=== PATIENT | male | born 1955 | race African-American/Black ===

== ENCOUNTER → 2019-10-18 12:51 | Outpatient (CLI) | payer MEDICAID, SELFPAY ==
--- NOTE | 2019-10-18 12:57 | VDUE_ITS ---
Reason For Study: ESRD Right Arm Left Arm Right Cephalic Vein at the wrist measures Left Cephalic Vein at the wrist measures 0.34 0.23 x 0.22 cm. x 0.35 cm. Right Cephalic Vein in the forearm measures Left Cephalic Vein in the forearm measures 0.27 x 0.27 cm. 0.21 x 0.21 cm. Right Cephalic Vein below antecub measures Left Cephalic Vein below antecub measures 0.15 x 0.15 cm. 0.20 x 0.21 cm. Right Cephalic Vein above antecub measures Multiple small branches noted throughout the 0.05 x 0.06 cm. left forearm. Right Cephalic Vein mid bicep measures 0.18 Cephalic vein above antecube is partially x 0.20 cm. compressible with bright intraluminal echoes Right Cephalic Vein at the shoulder measures consistent with chronic DVT. 0.20 x 0.21 cm. Left Cephalic Vein above antecub measures Right Basilic Vein at the origin measures 0.26 x 0.28 cm. 0.53 x 0.56 cm. Left Cephalic Vein at mid bicep measures 0.32 Right Basilic Vein mid bicep measures 0.33 x x 0.33 cm. 0.41 cm. Left Cephalic Vein at the shoulder measures Right Basilic Vein above antecub measures 0.32 x 0.32 cm. 0.34 x 0.32 cm. Left Basilic vein not visualized. Branch at mid basilic measures 0.23 x 0.25 Left Brachial vein measures 0.63 x 0.68 cm cm. with a velocity of 64 cm/sec. Right Brachial artery measures 0.71 x 0.70 Left Radial vein measures 0.35 x 0.38 cm with cm with a velocity of 70.8 cm/sec. a velocity of 57.8 cm/sec. Right Radial artery measures 0.42 x 0.42 cm with a velocity of 50.3 cm/sec. Interpretation Summary Patent and compressible right upper extremity cephalic and basilic veins with dimensions as noted. Chronic superficial thrombophlebitis left cephalic vein above the antecubital space.. Left basilic vein not identified. Normal diameter and flow bilateral radial and brachial arteries. Ordering Physician: Manuelito Nunez Referring Physician: Rodri Pascal Performed By: Mariana Tavares RVT ?
== END ==
PROVIDERS: PCP Internal Medicine Infectious Disease; Referring Provider Student in an Organized Health Care Education/Training Program; Visit Provider Student in an Organized Health Care Education/Training Program
DX: N18.6 End stage renal disease (principal)
CPT/HCPCS: 93970

== ENCOUNTER → 2019-11-15 09:54 | Outpatient (CLI) | payer MEDICAID, SELFPAY ==
[2019-11-15 08:55] VITALS: BMI 29.8
--- NOTE | 2019-11-15 09:55 | ECHOD_ITS ---
Version 2 Reason For Study: s/p CABG Procedure This was a 2D Doppler, Color Flow transthoracic echocardiogram. Unable to use Definity; unable to get IV (attempted 3 times). Exam performed in department. Left Ventricle Normal LV size. Moderate concentric left ventricular hypertrophy. The estimated ejection fraction is 50 %. Stage 2 diastolic dysfunction. There is mild global hypokinesis of the left ventricle. Right Ventricle Normal RV size. Normal systolic function. Atria The left atrium is moderately enlarged. Normal right atrium. Mitral Valve Bileaflet diffuse mitral valve thickening. Moderate (2+) eccentric mitral valve insufficiency. Tricuspid Valve Normal tricuspid valve. Mild to moderate (1-2+) tricuspid valve insufficiency. Pulmonary artery systolic pressure is 45 mmHg. Moderate pulmonary hypertension. Aortic Valve Trisinus/trileaflet aortic valve. Trivial aortic valve insufficiency. Pulmonic Valve Normal pulmonic valve. Great Vessels Calcified aortic root. Mildly dilated aortic root. The pulmonary artery is normal size. Normal inferior vena cava. Pericardium/Pleural No pericardial effusion. MMode/2D Measurements & Calculations LVIDd: 4.5 cm IVSd: 1.8 cm Ao root diam: 4.0 cm LVIDs: 3.4 cm LVPWd: 1.3 cm RVDd: 4.1 cm FS: 25.2 % LAV(MOD-bp): 92.4 ml LA A4 area: 27.6 cm2 LA dimension(2D): 4.0 cm LAV(MOD-bp) Indexed: 41.6 ml/m2 LAV(MOD-sp2): 81.7 ml LAV(MOD-sp4): 95.8 ml RA A4 area: 16.6 cm2 Doppler Measurements & Calculations MV E max antelmo: 85.4 cm/sec Lat Peak E' Antelmo: 10.3 cm/sec Med Peak E' Antelmo: 3.4 cm/sec MV A max antelmo: 92.5 cm/sec E/E' lat: 8.3 E/E' med: 25.4 MV E/A: 0.92 Ao V2 max: 104.8 cm/sec LV V1 max: 68.8 cm/sec PA V2 max: 68.6 cm/sec Ao max P.4 mmHg LV V1 max P.9 mmHg Ao V2 mean: 78.9 cm/sec Ao mean P.7 mmHg Ao V2 VTI: 22.2 cm TR max antelmo: 318.4 cm/sec TR max P.5 mmHg Interpretation Summary Normal LV size. The estimated ejection fraction is 50 %. There is mild global hypokinesis of the left ventricle. Moderate (2+) eccentric mitral valve insufficiency. Pulmonary artery systolic pressure is 45 mmHg. Moderate pulmonary hypertension. Moderate concentric left ventricular hypertrophy. Stage 2 diastolic dysfunction. Ordering Physician: John Valenzuela Referring Physician: Rodri Pascal Performed By: Yessica Moreno, GUMARO, RVT
== END ==
PROVIDERS: PCP Internal Medicine Infectious Disease; Referring Provider Internal Medicine Cardiovascular Disease; Visit Provider Internal Medicine Cardiovascular Disease
DX: I42.8 Other cardiomyopathies (principal); Z95.1 Presence of aortocoronary bypass graft
CPT/HCPCS: 93306; Q9957; A4216

== ENCOUNTER 2019-12-06 08:49 | Day surgery (SDC) | payer MEDICAID, SELFPAY ==
[2019-11-15 09:44] VITALS: BMI 29.8
[2019-12-06] VITALS (14 sets, daily range): BP systolic 127–146; BP diastolic 81–111; PULSE 71–93; RESP 16; TEMP 36.3–37.4; O2SAT 88–98; BMI 30.2
[2019-12-06 10:41] LABS: Bedside Glucose 305 mg/dL (70-110)
--- NOTE | 2019-12-06 10:41 | HP.PCM_ITS ---
Problem List (1) End-stage renal disease on hemodialysis Status: Chronic History and Physical Date of Admission: 12/06/19 Intake Visit Reasons: PERMANENT ACCESS/ VM 10/17 Allergies NSAIDS (Non-Steroidal Anti-Inflamma Allergy (Unknown, Verified 10/30/19 14:34) Unknown JONNY Inhibitors Allergy (Verified 10/30/19 14:34) Unknown Medications acetaminophen 500 mg tablet 500 mg PO Q6H PRN 10/30/19 [History Confirmed 10/30/19] amlodipine 10 mg tablet 10 mg PO DAILY 10/30/19 [History Confirmed 10/30/19] atorvastatin 40 mg tablet 40 mg PO QHS 10/30/19 [History Confirmed 10/30/19] carbamazepine 100 mg capsule,extended release [id number] 100 mg PO TID cap 10/30/19 [History Confirmed 10/30/19] carbamazepine 200 mg tablet 200 mg PO BID 10/30/19 [History Confirmed 10/30/19] carvedilol 25 mg tablet 25 mg PO BID 10/30/19 [History Confirmed 10/30/19] finasteride 5 mg tablet 5 mg PO DAILY 10/30/19 [History Confirmed 10/30/19] furosemide 40 mg tablet 40 mg PO DAILY 10/30/19 [History Confirmed 10/30/19] gabapentin 300 mg capsule 300 mg PO BID 10/30/19 [History Confirmed 10/30/19] hydralazine 10 mg tablet 10 mg PO TID 10/30/19 [History Confirmed 10/30/19] insulin aspart U-100 100 unit/mL subcutaneous cartridge 1 sliding scale dose SC USEASDIRECTD 10/30/19 [History Confirmed 10/30/19] isosorbide mononitrate 30 mg tablet,extended release 24 hr 90 mg PO DAILY tab 10/30/19 [History Confirmed 10/30/19] nitroglycerin 0.4 mg sublingual tablet 0.4 mg SUBLINGUAL Q5M PRN 10/30/19 [History Confirmed 10/30/19] ondansetron HCl 4 mg tablet 4 mg PO Q6H 10/30/19 [History Confirmed 10/30/19] pantoprazole 40 mg tablet,delayed release 40 mg PO DAILY 10/30/19 [History Confirmed 10/30/19] sennosides 8.6 mg-docusate sodium 50 mg capsule 2 tab-cap PO QHS cap 10/30/19 [History Confirmed 10/30/19] terazosin 5 mg capsule 5 mg PO DAILY 10/30/19 [History Confirmed 10/30/19] [facility] Medical History (Updated 10/30/19 @ 14:29 by Terrie Arellano) Chronic obstructive pulmonary disease, unspecified (Chronic) Type 2 diabetes mellitus with other diabetic kidney complication (Acute) Muscle weakness (generalized) (Acute) Hyperlipidemia, unspecified (Acute) Unspecified systolic (congestive) heart failure (Acute) Coronary artery aneurysm (Acute) Type 2 diabetes mellitus with diabetic neuropathy, unspecified (Acute) Pneumonia, unspecified organism (Acute) Chronic kidney disease, stage 5 (Chronic) Atherosclerosis of other coronary artery bypass graft(s) with unspecified angina pectoris (Acute) Emphysema, unspecified (Acute) Morbid (severe) obesity due to excess calories (Acute) Other cervical disc degeneration, unspecified cervical region (Acute) Major depressive disorder, recurrent, moderate (Acute) Syncope and collapse (Acute) Benign prostatic hyperplasia without lower urinary tract symptoms (Acute) Old myocardial infarction (Acute) Neuralgia and neuritis, unspecified (Acute) GERD (gastroesophageal reflux disease) (Acute) Hypertension (Chronic) Unspecified cataract (Acute) Paraphilia, unspecified (Acute) Surgical History (Updated 10/30/19 @ 14:29 by Terrie Arellano) Hx of appendectomy (Acute) Hx of three vessel coronary artery bypass (Acute) Hx of heart artery stent (Acute) Family History (Updated 10/30/19 @ 14:30 by Terrie Arellano) Mother Diabetes HPI HPI HPI: PRASHANTH INGRAM, is a 64 M who presents to the office today for surgical consultation regarding hemodialysis access in the form of an AV fistula. Patient is referred by his plate sensitizer and a written copy of my surgical consult recommendations will return to him. Patient is a 64-year-old -[place] gentleman. He states that he was hospitalized at [facility] for at least a week with what sounds like acute on chronic renal failure. He had right internal jugular tunneled dialysis catheters placed. He of course had multiple peripheral lines. Is been on hemodialysis for at least a month He is right arm dominant. States that 2 years ago he was sent to [place] had coronary bypass surgery. He states that he was told at that time that his heart was so bad that he should basically remain in a wheelchair. He has done minimal walking since that time. He has not been back to see his medical claims examiner in that time. As noted below on October 17 at the [facility] he had vein mapping. Unfortunately that shows thrombophlebitis of his left cephalic vein. The left basilic vein is not identified. The right upper extremity cephalic vein is marginal. The right upper extremity basilic vein is adequate. [facility] [address] [place] [address] Saphenous Vein Mapping, Bilat 10/18/19 1301 MR#: [id number]:[id number] Name:Betsy INGRAM #:[id number] : 1955 64From:Mauricio Fox MD Attending Dr: Dr. Manuelito Nunez MDStatus: REG CLI Ordering Dr: Manuelito Nunez MDDate: 10/18/19 Location:CVSSex:MAA Admitted: Reason For Study: ESRD Right Arm Left Arm Right Cephalic Vein at the wrist measures Left Cephalic Vein at the wrist measures 0.34 0.23 x 0.22 cm. x 0.35 cm. Right Cephalic Vein in the forearm measures Left Cephalic Vein in the forearm measures 0.27 x 0.27 cm. 0.21 x 0.21 cm. Right Cephalic Vein below antecub measures Left Cephalic Vein below antecub measures 0.15 x 0.15 cm. 0.20 x 0.21 cm. Right Cephalic Vein above antecub measures Multiple small branches noted throughout the 0.05 x 0.06 cm. left forearm. Right Cephalic Vein mid bicep measures 0.18 Cephalic vein above antecube is partially x 0.20 cm. compressible with bright intraluminal echoes Right Cephalic Vein at the shoulder measures consistent with chronic DVT. 0.20 x 0.21 cm. Left Cephalic Vein above antecub measures Right Basilic Vein at the origin measures 0.26 x 0.28 cm. 0.53 x 0.56 cm. Left Cephalic Vein at mid bicep measures 0.32 Right Basilic Vein mid bicep measures 0.33 x x 0.33 cm. 0.41 cm. Left Cephalic Vein at the shoulder measures Right Basilic Vein above antecub measures 0.32 x 0.32 cm. 0.34 x 0.32 cm. Left Basilic vein not visualized. Branch at mid basilic measures 0.23 x 0.25 Left Brachial vein rahul sures 0.63 x 0.68 cm cm. with a velocity of 64 cm/sec. Right Brachial artery measures 0.71 x 0.70 Left Radial vein measures 0.35 x 0.38 cm with cm with a velocity of 70.8 cm/sec. a velocity of 57.8 cm/sec. Right Radial artery measures 0.42 x 0.42 cm with a velocity of 50.3 cm/sec. Interpretation Summary Patent and compressible right upper extremity cephalic and basilic veins with dimensions as noted. Chronic superficial thrombophlebitis left cephalic vein above the antecubital space.. Left basilic vein not identified. Normal diameter and flow bilateral radial and brachial arteries. Ordering Physician: Manuelito Nunez Referring Physician: Rodri Pascal Performed By: Mariana Tavares RVT ? 10/18/19 5799 Date Mauricio Fox MD HPI HPI HPI: PRASHANTH INGRAM, is a 64 M who presents to the office today for Exam Const General: comfortable, no acute distress Nutritional Appearance: obese Orientation: alert, awake HENMT Head: normal to inspection Chest Other: Increased anterior posterior diameter Resp Auscultation: clear to auscultation bilaterally Percussion: percussion normal Cardio Rate: regular rate Rhythm: regular rhythm GI Palpation: soft Other: Overweight, nontender Skin Other: Skin of bilateral upper extremities is intact Neuro Cognition: normal cognition Extrem Other: Right upper extremity radial and brachial arteries are 3+. I cannot detect visually any superficial veins. Psych Other: Patient demonstrated some frustration and my description of the fistula and need for staged approach Assessment & Plan Problems 1. Chronic kidney disease, stage 5 N18.5 Plan Although the patient is right arm dominant he has superficial thrombophlebitis involving the left upper extremity cephalic vein and he has a nonvisualized left extremity basilic vein. I propose for him stage I right extremity brachiobasilic AV fistula creation and he is well aware that a future transposition will be required. He is aware that there are absolutely no guarantees of success. He is aware that intermittent procedures to help maintain the fistula may indeed be required. He has not seen cardiology for 2 years. He describes what sounds like a very poorly functioning heart. He states that he went through having the tunnel dialysis catheters though without consequence. I am recommending to him that we get updated cardiology review. He is requesting not to return to [facility] and so we will make a referral locally here in [place]. I then propose for him stage I right extremity brachiobasilic AV fistula creation under monitored anesthesia care. We will schedule and proceed at his discretion. I very much appreciate the kind opportunity of assisting with her surgical care. Cc: Dr. Manuelito Nunez and Dr Rodri Fox M.D., F.A.C.S. Orders Referrals: Cardiology I25.799, I50.20, Z95.1, Z95.5 Coding Level of Care Code 25020 Diagnoses Chronic kidney disease, stage 5 N18.5 I have re-examined the patient. There are no clinical changes since date of exam. Patient has been seen by Dr. Lopez Nicolas cardiology. Repeat stress testing was not felt to be required. Patient presents now for stage I right upper extremity basilic vein to brachial artery AV fistula creation. He has had an additional opportunity to ask and have questions answered. His blood sugars continue to run high secondary to noncompliance. Mauricio Fox M.D., F.A.C.S. Procedure Criteria Procedure Type: Elective COVID Risk Discussion: The surgeon/proceduralist and patient have discussed in detail the risk of exposure to and/or potential harm posed by the COVID-19 virus with having a surgery/procedure at this time versus the risk of delaying the surgery/procedure. It is not possible to know either the risk of delaying the surgery or procedure or chance of getting an infection with perfect accuracy, but a joint decision was made between the patient and the surgeon/proceduralist to proceed at this time with the scheduled surgery/procedure as indicated on the consent form.
--- NOTE | 2019-12-06 11:00 | DCINST_ITS ---
Discharge Diet: Renal Diet Discharge Activity: May Not Drive - for 2-3 days or while taking narcotic pain medications., May Not Shower, May Take a Tub Bath - in 5 days. Lifting Restrictions: 5 pounds Keep extremity elevated above heart level: - - Keep arm elevated above the heart level for 3 days. Additional Activity Instructions:: Exercise hand vigorously with a stress ball. Call your doctor if your incision/area has: Continuous Slow Oozing, Sudden Increased Bleeding - apply pressure and call your doctor., Increased Pain/ Swelling, Increased Redness, Foul Smelling Discharge Call your doctor if you observe: Fever of 101 or Higher Suture Line Care: Avoid Pulling/Pushing, Avoid Pinching/Bending Cleanse incision/area with: Keep Dressing Clean & Dry Additional Dressing/Incision Instructions:: Change or remove dressing in one day. May protect with a gauze bandaid. Allergies/Adverse Reactions: Allergies NSAIDS (Non-Steroidal Anti-Inflamma Allergy (Unknown, Verified 12/06/19 09:12) Unknown JONNY Inhibitors Allergy (Verified 12/06/19 09:12) Unknown MANTOUX Allergy (Uncoded 12/06/19 09:12) PT UNSURE OF REACTION Medications to take at Discharge acetaminophen 500 mg tablet 500 mg PO Q6H PRN 10/30/19 amlodipine 10 mg tablet 10 mg PO DAILY 10/30/19 atorvastatin 40 mg tablet 40 mg PO QHS 10/30/19 carbamazepine 200 mg tablet 200 mg PO BID 10/30/19 carvedilol 25 mg tablet 25 mg PO BID 10/30/19 furosemide 40 mg tablet 40 mg PO DAILY 10/30/19 gabapentin 300 mg capsule 300 mg PO BID 10/30/19 hydralazine 10 mg tablet 10 mg PO TID 10/30/19 isosorbide mononitrate 30 mg tablet,extended release 24 hr 90 mg PO DAILY tab 10/30/19 nitroglycerin 0.4 mg sublingual tablet 0.4 mg SUBLINGUAL Q5M PRN 10/30/19 ondansetron HCl 4 mg tablet 4 mg PO Q6H 10/30/19 pantoprazole 40 mg tablet,delayed release 40 mg PO DAILY 10/30/19 sennosides 8.6 mg-docusate sodium 50 mg capsule 2 tab-cap PO QHS cap 10/30/19 terazosin 5 mg capsule 5 mg PO DAILY 10/30/19 Insulin Detemir [Levemir] 18 - 20 unit SQ BID 11/26/19 Primary Care Physician: Rodri Pascal MD [Primary Care Provider] - Test Results: Test results from this visit will be discussed in further detail at your follow- up appointment, if applicable. Please Follow Up With: Mauricio Fox MD - [phone] When: Call to make an appointment for suture removal and follow up in 1 week.
[2019-12-06] MEDS: Insulin Lispro 100 UNIT/ML INSULN.PEN 6 UNIT SC (11:06)
[2019-12-06] MEDS: Heparin Injection (Vial) 5,000 UNIT/ML VIAL 5000 UNIT (12:00)
[2019-12-06] MEDS: Bupivacaine Mpf 0.5% 30 ML VIAL (12:00)
--- NOTE | 2019-12-06 12:11 | PCM.OPRPT ---
Problem List (1) End-stage renal disease on hemodialysis Status: Chronic Report of Operation Date of Procedure: 12/06/19 Pre-Operative Diagnosis: Stage V chronic renal failure Post-Operative Diagnosis: Same Surgery/Procedure Performed:: Stage I right upper extremity basilic vein to brachial artery arteriovenous hemodialysis fistula creation Description of Surgical Findings:: Timeout and informed consent was obtained. 64-year-old gentleman was taken to the operating placed supine on the table underwent monitored anesthesia care. The right upper extremity was sterilely prepped and draped. 1% lidocaine mixed 50-50 with 0.5% Marcaine was used as a local anesthetic. Total of 9 cc was used. Ultrasound was used to map the course of the right upper arm basilic vein. A curvilinear incision was made in the distal right upper arm close to the antecubital space. Sharp dissection carried down through the subcutaneous tissue. The basilic vein was identified and dissected free distally to a branch point. Sharp and blunt dissection was used to identify the brachial artery and circumferential control was obtained. The patient received 10,000 units of heparin IV based upon weight. The vein was ligated distally with 2 hemoclips. This was at a branch point which was spatulated. The vein was irrigated. Peripheral vascular clamps were placed on the brachial artery. A 11 blade was used to make an arteriotomy which was extended with Brush scissors. A end-to-side vein to arterial anastomosis was created with a running 7-0 Prolene. Prior to completion there appeared to be good antegrade flow. The anastomosis was completed. There is a good 2-3+ palpable right radial pulse. There was pulsatile flow within the fistula. Doppler was used to confirm. The patient received 20 mg of protamine IV. The wound was closed with deep layer of interrupted 3-0 Vicryl. The skin edges approximated running septic or 4-0 Monocryl. Steri-Strips Telfa OpSite dressing applied. Sponge and instrument and needle counts were reported to the surgeon to be correct. Blood loss minimal. Specimens none. Drains none. Blood loss minimal. Mauricio Fox M.D., F.A.C.S. Type of Anesthesia:: Local MAC Anesthesiologist: Martin Josue
[2019-12-06 12:46] LABS: Bedside Glucose 269 mg/dL (70-110)
== END 2019-12-06 15:39 | disposition home or self-care (01) ==
LOC: SDC 08:50 → AC 08:51
PROVIDERS: PCP Internal Medicine Infectious Disease; Referring Provider Surgery; Visit Provider Surgery
PROC: (CPT 36821; principal; 2019-12-06 10:45)
DX: E11.22 Type 2 diabetes mellitus with diabetic chronic kidney disease (principal); I13.2 Hypertensive heart and chronic kidney disease with heart failure and with stage 5 chronic kidney disease, or end stage renal disease; N18.6 End stage renal disease; I50.20 Unspecified systolic (congestive) heart failure; Z99.2 Dependence on renal dialysis; Z91.19 Patient's noncompliance with other medical treatment and regimen; J44.9 Chronic obstructive pulmonary disease, unspecified; E78.5 Hyperlipidemia, unspecified; I25.799 Atherosclerosis of other coronary artery bypass graft(s) with unspecified angina pectoris; E66.01 Morbid (severe) obesity due to excess calories; F32.9 Major depressive disorder, single episode, unspecified; F41.9 Anxiety disorder, unspecified; N40.0 Benign prostatic hyperplasia without lower urinary tract symptoms; I25.2 Old myocardial infarction; K21.9 Gastro-esophageal reflux disease without esophagitis; E11.40 Type 2 diabetes mellitus with diabetic neuropathy, unspecified; I27.20 Pulmonary hypertension, unspecified; Z87.01 Personal history of pneumonia (recurrent); Z95.1 Presence of aortocoronary bypass graft; Z79.4 Long term (current) use of insulin; Z79.84 Long term (current) use of oral hypoglycemic drugs; Z79.899 Other long term (current) drug therapy; F17.200 Nicotine dependence, unspecified, uncomplicated
CPT/HCPCS: 01844; 36821; 82962; J7040; J2405

== ENCOUNTER 2020-01-15 05:54 | Day surgery (SDC) | payer MEDICAID, SELFPAY ==
[2019-12-14 06:29] VITALS: BMI 30.2
[2020-01-15] VITALS (7 sets, daily range): BP systolic 109–138; BP diastolic 49–78; PULSE 59–73; RESP 16–18; TEMP 36.2–36.9; O2SAT 92–98; BMI 30.6
--- NOTE | 2020-01-15 06:11 | HP.PCM_ITS ---
Problem List (1) End-stage renal disease on hemodialysis Status: Chronic History and Physical Date of Admission: 01/15/20 Vital Signs 12/14/19 BMI 30.2 Intake Visit Reasons: 1WK F/U Fistula Creation 12/05 needs S/R Allergies NSAIDS (Non-Steroidal Anti-Inflamma Allergy (Unknown, Verified 12/14/19 07:30) Unknown JONNY Inhibitors Allergy (Verified 12/14/19 07:30) Unknown MANTOUX Allergy (Uncoded 12/06/19 09:12) PT UNSURE OF REACTION Medications acetaminophen 500 mg tablet 500 mg PO Q6H PRN 10/30/19 [History Confirmed 12/14/19] amlodipine 10 mg tablet 10 mg PO DAILY 10/30/19 [History Confirmed 12/14/19] atorvastatin 40 mg tablet 40 mg PO QHS 10/30/19 [History Confirmed 12/14/19] carbamazepine 200 mg tablet 200 mg PO BID 10/30/19 [History Confirmed 12/14/19] carvedilol 25 mg tablet 25 mg PO BID 10/30/19 [History Confirmed 12/14/19] furosemide 40 mg tablet 40 mg PO DAILY 10/30/19 [History Confirmed 12/14/19] gabapentin 300 mg capsule 300 mg PO BID 10/30/19 [History Confirmed 12/14/19] hydralazine 10 mg tablet 10 mg PO TID 10/30/19 [History Confirmed 12/14/19] isosorbide mononitrate 30 mg tablet,extended release 24 hr 90 mg PO DAILY tab 10/30/19 [History Confirmed 12/14/19] nitroglycerin 0.4 mg sublingual tablet 0.4 mg SUBLINGUAL Q5M PRN 10/30/19 [History Confirmed 12/14/19] ondansetron HCl 4 mg tablet 4 mg PO Q6H 10/30/19 [History Confirmed 12/14/19] pantoprazole 40 mg tablet,delayed release 40 mg PO DAILY 10/30/19 [History Confirmed 12/14/19] sennosides 8.6 mg-docusate sodium 50 mg capsule 2 tab-cap PO QHS cap 10/30/19 [History Confirmed 12/14/19] terazosin 5 mg capsule 5 mg PO DAILY 10/30/19 [History Confirmed 12/14/19] Insulin Detemir [Levemir] 18 - 20 unit SQ BID 11/26/19 [History Confirmed 12/14/19] PFSH Family History Mother Diabetes Social History (Updated 12/14/19 @ 07:[address] Mauricio Fox MD) Smoking Status: Light Smoker (<10/day) second hand exposure: Yes alcohol intake: never substance use type: does not use caffeine: No what type of physical activity do you participate in: none seatbelt use: always HPI HPI HPI: PRASHANTH INGRAM, is a 64 M who presents to the office today for postoperative surgical evaluation status post stage I right upper extremity brachiobasilic AV fistula creation as noted below. He has no specific complaints at this time other than some mild soreness at the incision site. Report of Operation Date of Procedure: 12/06/19 Pre-Operative Diagnosis: Stage V chronic renal failure Post-Operative Diagnosis: Same Surgery/Procedure Performed:: Stage I right upper extremity basilic vein to brachial artery arteriovenous hemodialysis fistula creation Problem List (1) End-stage renal disease on hemodialysis Status: Chronic History and Physical Date of Admission: 12/06/19 Intake Visit Reasons: PERMANENT ACCESS/ VM 10/17 Allergies NSAIDS (Non-Steroidal Anti-Inflamma Allergy (Unknown, Verified 10/30/19 14:34) Unknown JONNY Inhibitors Allergy (Verified 10/30/19 14:34) Unknown Medications acetaminophen 500 mg tablet 500 mg PO Q6H PRN 10/30/19 [History Confirmed 10/30/19] amlodipine 10 mg tablet 10 mg PO DAILY 10/30/19 [History Confirmed 10/30/19] atorvastatin 40 mg tablet 40 mg PO QHS 10/30/19 [History Confirmed 10/30/19] carbamazepine 100 mg capsule,extended release [id number] 100 mg PO TID cap 10/30/19 [History Confirmed 10/30/19] carbamazepine 200 mg tablet 200 mg PO BID 10/30/19 [History Confirmed 10/30/19] carvedilol 25 mg tablet 25 mg PO BID 10/30/19 [History Confirmed 10/30/19] finasteride 5 mg tablet 5 mg PO DAILY 10/30/19 [History Confirmed 10/30/19] furosemide 40 mg tablet 40 mg PO DAILY 10/30/19 [History Confirmed 10/30/19] gabapentin 300 mg capsule 300 mg PO BID 10/30/19 [History Confirmed 10/30/19] hydralazine 10 mg tablet 10 mg PO TID 10/30/19 [History Confirmed 10/30/19] insulin aspart U-100 100 unit/mL subcutaneous cartridge 1 sliding scale dose SC USEASDIRECTD 10/30/19 [History Confirmed 10/30/19] isosorbide mononitrate 30 mg tablet,extended release 24 hr 90 mg PO DAILY tab 10/30/19 [History Confirmed 10/30/19] nitroglycerin 0.4 mg sublingual tablet 0.4 mg SUBLINGUAL Q5M PRN 10/30/19 [History Confirmed 10/30/19] ondansetron HCl 4 mg tablet 4 mg PO Q6H 10/30/19 [History Confirmed 10/30/19] pantoprazole 40 mg tablet,delayed release 40 mg PO DAILY 10/30/19 [History Confirmed 10/30/19] sennosides 8.6 mg-docusate sodium 50 mg capsule 2 tab-cap PO QHS cap 10/30/19 [History Confirmed 10/30/19] terazosin 5 mg capsule 5 mg PO DAILY 10/30/19 [History Confirmed 10/30/19] PFSH Medical History (Updated 10/30/19 @ 14:29 by Terrie Arellano) Chronic obstructive pulmonary disease, unspecified (Chronic) Type 2 diabetes mellitus with other diabetic kidney complication (Acute) Muscle weakness (generalized) (Acute) Hyperlipidemia, unspecified (Acute) Unspecified systolic (congestive) heart failure (Acute) Coronary artery aneurysm (Acute) Type 2 diabetes mellitus with diabetic neuropathy, unspecified (Acute) Pneumonia, unspecified organism (Acute) Chronic kidney disease, stage 5 (Chronic) Atherosclerosis of other coronary artery bypass graft(s) with unspecified angina pectoris (Acute) Emphysema, unspecified (Acute) Morbid (severe) obesity due to excess calories (Acute) Other cervical disc degeneration, unspecified cervical region (Acute) Major depressive disorder, recurrent, moderate (Acute) Syncope and collapse (Acute) Benign prostatic hyperplasia without lower urinary tract symptoms (Acute) Old myocardial infarction (Acute) Neuralgia and neuritis, unspecified (Acute) GERD (gastroesophageal reflux disease) (Acute) Hypertension (Chronic) Unspecified cataract (Acute) Paraphilia, unspecified (Acute) Surgical History (Updated 10/30/19 @ 14:29 by Terrie Arellano) Hx of appendectomy (Acute) Hx of three vessel coronary artery bypass (Acute) Hx of heart artery stent (Acute) Family History (Updated 10/30/19 @ 14:30 by Terrie Arellano) Mother Diabetes HPI HPI HPI: PRASHANTH INGRAM, is a 64 M who presents to the office today for surgical consultation regarding hemodialysis access in the form of an AV fistula. Patient is referred by his research laboratory manager and a written copy of my surgical consult recommendations will return to him. Patient is a 64-year-old -[place] gentleman. He states that he was hospitalized at [facility] for at least a week with what sounds like acute on chronic renal failure. He had right internal jugular tunneled dialysis catheters placed. He of course had multiple peripheral lines. Is been on hemodialysis for at least a month He is right arm dominant. States that 2 years ago he was sent to [facility] had coronary bypass surgery. He states that he was told at that time that his heart was so bad that he should basically remain in a wheelchair. He has done minimal walking since that time. He has not been back to see his elementary special education teacher in that time. As noted below on October 17 at the [facility] he had vein mapping. Unfortunately that shows thrombophlebitis of his left cephalic vein. The left basilic vein is not identified. The right upper extremity cephalic vein is marginal. The right upper extremity basilic vein is adequate. [facility] [address] [place] [address] Saphenous Vein Mapping, Bilat 10/18/19 1301 MR#: [id number] Name:PRASHANTH INGRAMRep #:[id number] : 1955 64From:Mauricio Fox MD Attending Dr: Dr. Manuelito Nunez, MDStatus: REG CLI Ordering Dr: Manuelito Nunez MDDate: 10/18/19 Location:CVSSex:MAA Admitted: Reason For Study: ESRD Right Arm Left Arm Right Cephalic Vein at the wrist measures Left Cephalic Vein at the wrist measures 0.34 0.23 x 0.22 cm. x 0.35 cm. Right Cephalic Vein in the forearm measures Left Cephalic Vein in the forearm measures 0.27 x 0.27 cm. 0.21 x 0.21 cm. Right Cephalic Vein below antecub measures Left Cephalic Vein below antecub measures 0.15 x 0.15 cm. 0.20 x 0.21 cm. Right Cephalic Vein above antecub measures Multiple small branches noted throughout the 0.05 x 0.06 cm. left forearm. Right Cephalic Vein mid bicep measures 0.18 Cephalic vein above antecube is partially x 0.20 cm. compressible with bright intraluminal echoes Right Cephalic Vein at the shoulder measures consistent with chronic DVT. 0.20 x 0.21 cm. Left Cephalic Vein above antecub measures Right Basilic Vein at the origin measures 0.26 x 0.28 cm. 0.53 x 0.56 cm. Left Cephalic Vein at mid bicep measures 0.32 Right Basilic Vein mid bicep measures 0.33 x x 0.33 cm. 0.41 cm. Left Cephalic Vein at the shoulder measures Right Basilic Vein above antecub measures 0.32 x 0.32 cm. 0.34 x 0.32 cm. Left Basilic vein not visualized. Branch at mid basilic measures 0.23 x 0.25 Left Brachial vein measures 0.63 x 0.68 cm cm. with a velocity of 64 cm/sec. Right Brachial artery measures 0.71 x 0.70 Left Radial vein measures 0.35 x 0.38 cm with cm with a velocity of 70.8 cm/sec. a velocity of 57.8 cm/sec. Right Radial artery measures 0.42 x 0.42 cm with a velocity of 50.3 cm/sec. Interpretation Summary Patent and compressible right upper extremity cephalic and basilic veins with dimensions as noted. Chronic superficial thrombophlebitis left cephalic vein above the antecubital space.. Left basilic vein not identified. Normal diameter and flow bilateral radial and brachial arteries. Ordering Physician: Manuelito Nunez Referring Physician: Rodri Pascal Performed By: Mariana Tavares RVT ? 10/18/19 1458 Date Mauricio Fox MD HPI HPI HPI: PRASHANTH INGRAM, is a 64 M who presents to the office today for Exam Const General: comfortable, no acute distress Nutritional Appearance: obese Orientation: alert, awake HENMT Head: normal to inspection Chest Other: Increased anterior posterior diameter Resp Auscultation: clear to auscultation bilaterally Percussion: percussion normal Cardio Rate: regular rate Rhythm: regular rhythm GI Palpation: soft Other: Overweight, nontender Skin Other: Skin of bilateral upper extremities is intact Neuro Cognition: normal cognition Extrem Other: Right upper extremity radial and brachial arteries are 3+. I cannot detect visually any superficial veins. Psych Other: Patient demonstrated some frustration and my description of the fistula and need for staged approach Assessment & Plan Problems 1. Chronic kidney disease, stage 5 N18.5 Plan Although the patient is right arm dominant he has superficial thrombophlebitis involving the left upper extremity cephalic vein and he has a nonvisualized left extremity basilic vein. I propose for him stage I right extremity br achiobasilic AV fistula creation and he is well aware that a future transposition will be required. He is aware that there are absolutely no guarantees of success. He is aware that intermittent procedures to help maintain the fistula may indeed be required. He has not seen cardiology for 2 years. He describes what sounds like a very poorly functioning heart. He states that he went through having the tunnel dialysis catheters though without consequence. I am recommending to him that we get updated cardiology review. He is requesting not to return to [facility] and so we will make a referral locally here in [place]. I then propose for him stage I right extremity brachiobasilic AV fistula creation under monitored anesthesia care. We will schedule and proceed at his discretion. I very much appreciate the kind opportunity of assisting with her surgical care. Cc: Dr. Manuelito Nunez and Dr Rodri Fox M.D., F.A.C.S. Orders Referrals: Cardiology I25.799, I50.20, Z95.1, Z95.5 Coding Level of Care Code 49671 Diagnoses Chronic kidney disease, stage 5 N18.5 HPI HPI HPI: PRASHANTH INGRAM, is a 64 M who presents to the office today for Exam Extrem Other: Right upper extremity antecubital incision is clean dry healing very well. There is a thrill and bruit notable. Assessment & Plan Problems 1. End-stage renal disease on hemodialysis N18.6; Z99.2 Plan I am pleased with the patient's current progress. There appears to be a reasonable thrill and bruit subsequent to stage I right extremity brachiobasilic AV fistula creation. I will schedule him for stage II transposition. He is aware of the benefit, risk, complications, alternatives. As noted above the patient does not have otherwise good vein access readily available. I am hopeful that I will be able to achieve a functioning fistula for him. We will allow the current fistula matured a little longer prior to his transposition. Copy: Dr. Nunez and Dr Gwyn Fox M.D., F.A.C.S. Plan stage II right upper extremity transposed basilic vein to brachial artery AV fistula creation. I have re-examined the patient. There are no clinical changes since date of exam. Procedure Criteria Procedure Type: Elective COVID Risk Discussion: The surgeon/proceduralist and patient have discussed in detail the risk of exposure to and/or potential harm posed by the COVID-19 virus with having a surgery/procedure at this time versus the risk of delaying the surgery/procedure. It is not possible to know either the risk of delaying the surgery or procedure or chance of getting an infection with perfect accuracy, but a joint decision was made between the patient and the surgeon/proceduralist to proceed at this time with the scheduled surgery/procedure as indicated on the consent form.
[2020-01-15] MEDS: Lactated Ringers 1,000 ML 100 ML IV (07:00)
--- NOTE | 2020-01-15 07:00 | DCINST_ITS ---
Discharge Diet: Renal Diet Discharge Activity: May Not Drive - for 2-3 days or while taking narcotic pain medications., May Not Shower, May Take a Tub Bath - in 5 days. Lifting Restrictions: 5 pounds Keep extremity elevated above heart level: - - Keep arm elevated above the heart level for 3 days. Additional Activity Instructions:: Exercise hand vigorously with a stress ball. Call your doctor if your incision/area has: Continuous Slow Oozing, Sudden Increased Bleeding - apply pressure and call your doctor., Increased Pain/ Swelling, Increased Redness, Foul Smelling Discharge Call your doctor if you observe: Fever of 101 or Higher Suture Line Care: Avoid Pulling/Pushing, Avoid Pinching/Bending Cleanse incision/area with: Keep Dressing Clean & Dry Additional Dressing/Incision Instructions:: You may leave the elastic wrap dressing on for 2 days. You may then remove that and the soft gauze. There will be Steri-Strips on your skin. You may recover those with gauze and tape or if they are not irritated you may leave that open. Keep the Steri-Strips in place for 1 week. Allergies/Adverse Reactions: Allergies NSAIDS (Non-Steroidal Anti-Inflamma Allergy (Unknown, Verified 01/15/20 06:25) Unknown JONNY Inhibitors Allergy (Verified 01/15/20 06:25) Unknown MANTOUX Allergy (Uncoded 01/15/20 06:25) PT UNSURE OF REACTION Medications to take at Discharge acetaminophen 500 mg tablet 500 mg PO Q6H PRN 10/30/19 atorvastatin 40 mg tablet 40 mg PO QHS 10/30/19 carbamazepine 200 mg tablet 200 mg PO BID 10/30/19 carvedilol 25 mg tablet 25 mg PO BID 10/30/19 furosemide 40 mg tablet 40 mg PO DAILY 10/30/19 gabapentin 300 mg capsule 300 mg PO BID 10/30/19 isosorbide mononitrate 30 mg tablet,extended release 24 hr 90 mg PO DAILY tab 10/30/19 ondansetron HCl 4 mg tablet 4 mg PO Q6H PRN 10/30/19 pantoprazole 40 mg tablet,delayed release 40 mg PO DAILY 10/30/19 sennosides 8.6 mg-docusate sodium 50 mg capsule 2 tab-cap PO BID cap 10/30/19 terazosin 5 mg capsule 5 mg PO QHS 10/30/19 Insulin Detemir [Levemir] 45 unit SQ BID 11/26/19 Aspirin [Aspirin EC] 81 mg PO DAILY 01/14/20 Insulin Lispro [Humalog] 0 unit SQ TID 01/14/20 Insulin Lispro [Humalog] 10 unit SQ 1130 01/14/20 Insulin Lispro [Humalog] 14 unit SQ 0700 01/14/20 Insulin Lispro [Humalog] 16 unit SQ 1630 01/14/20 Magnesium Hydroxide [Milk Of Magnesia] 30 ml PO DAILY PRN PRN 01/14/20 Oxycodone [Oxyir] 5 mg PO Q6H PRN PRN 2 Days #6 tab 01/15/20 The following prescriptions were given: Oxycodone [Oxyir] 5 mg PO Q6H PRN PRN 2 Days #6 tab PRN Reason: Pain 1-10 Or Fever Transmission Status: Received by [facility] Primary Care Physician: Rodri Pascal MD [Primary Care Provider] - Test Results: Test results from this visit will be discussed in further detail at your follow- up appointment, if applicable. Please Follow Up With: Mauricio Fox MD - [phone] When: Call to make an appointment for suture removal and follow up in 7-10 days
[2020-01-15 07:43] LABS: Bedside Glucose 148 mg/dL (70-110)
[2020-01-15] MEDS: Cefazolin 2 GM in 0.9% Normal Saline 100 ML IV (07:45)
[2020-01-15] MEDS: Bupivacaine Mpf 0.5% 30 ML VIAL (08:13)
[2020-01-15] MEDS: Heparin Injection (Vial) 5,000 UNIT/ML VIAL 5000 UNIT (09:30)
--- NOTE | 2020-01-15 10:36 | PCM.OPRPT ---
Problem List (1) End-stage renal disease on hemodialysis Status: Chronic Report of Operation Date of Procedure: 01/15/20 Pre-Operative Diagnosis: Stage I right upper extremity brachial to basilic arteriovenous hemodialysis fistula Post-Operative Diagnosis: Successful stage II transposition right upper extremity basilic vein to brachial artery arteriovenous hemodialysis fistula Surgery/Procedure Performed:: Stage II transposition right upper extremity basilic vein to brachial artery arteriovenous fistula creation Description of Surgical Findings:: Timeout and informed consent was obtained. 64-year-old gent was taken the operating placed on the table underwent general anesthesia. Ancef 2 g were given intravenously. The right extremity sterilely prepped and draped. 1% lidocaine mixed 50-50 with 0.5% Marcaine was used as a local anesthetic. Throughout the procedure a total of 60 cc was used. Ultrasound was used to map the course of the basilic vein. A longitudinal incision was made in the right upper inner arm tedious sharp and blunt dissection was used to identify the basilic vein it was completely dissected free. Side branches were secured with Vicryl ligatures and 3-0 Vicryl suture ligatures and hemoclips were indicated. The vein was completely harvested to the upper arm. It was measured in length it was anterior surface marked site for dissection the brachial artery was performed which was circumferentially dissected free. Then using a curved tunneler superior and anterior to the harvest incision the vein was tunneled. It had good positional lie. Irrigated well. The patient then received 10,000 units of heparin. Peripheral vascular clamps were placed on the brachial artery and 11 blade was used to medical an arteriotomy slightly oblique and it was extended with Brush scissors. The vein slightly thick-walled at this location was spatulated and a end-to-side anastomosis was created with running 7-0 Prolene. At the completion good hemostasis at the anastomosis was achieved. There was a good pulse thrill and bruit. The patient now on aliquots received a total of 30 mg of protamine. He had been diffusely oozy throughout the procedure. He takes a daily aspirin it seems to be effective. The subcutaneous tissues approximated in layers with interrupted 3-0 Vicryl. The skin edges approximated running septic or 4-0 Monocryl. Steri-Strips Telfa soft roll Clemente wrap ABDs applied. Sponge instrument and needle counts reported to be correct. Specimens none. Drains none. Blood loss 300 cc. The patient was taken to the recovery area in satisfactory edition without apparent complication. He had a 2+ right radial pulse. Mauricio Fox M.D., F.A.C.S. Type of Anesthesia:: General Anesthesiologist: Martin Josue
[2020-01-15 11:50] LABS: Bedside Glucose 159 mg/dL (70-110)
[2020-01-15] MEDS: HYDROcodone Bitartrate/Apap 5/325 Tablet PO (12:35)
== END 2020-01-15 13:07 | disposition home or self-care (01) ==
LOC: SDC 05:56 → AC 05:57
PROVIDERS: PCP Internal Medicine Infectious Disease; Referring Provider Surgery; Visit Provider Surgery
PROC: (CPT 36819; principal; 2020-01-15 07:15)
DX: E11.22 Type 2 diabetes mellitus with diabetic chronic kidney disease (principal); I13.2 Hypertensive heart and chronic kidney disease with heart failure and with stage 5 chronic kidney disease, or end stage renal disease; I50.20 Unspecified systolic (congestive) heart failure; N18.6 End stage renal disease; Z99.2 Dependence on renal dialysis; J44.9 Chronic obstructive pulmonary disease, unspecified; E78.5 Hyperlipidemia, unspecified; E11.40 Type 2 diabetes mellitus with diabetic neuropathy, unspecified; E66.01 Morbid (severe) obesity due to excess calories; Z68.30 Body mass index [BMI] 30.0-30.9, adult; F32.9 Major depressive disorder, single episode, unspecified; F41.9 Anxiety disorder, unspecified; N40.0 Benign prostatic hyperplasia without lower urinary tract symptoms; I25.2 Old myocardial infarction; K21.9 Gastro-esophageal reflux disease without esophagitis; I25.119 Atherosclerotic heart disease of native coronary artery with unspecified angina pectoris; Z87.01 Personal history of pneumonia (recurrent); Z95.1 Presence of aortocoronary bypass graft; Z79.4 Long term (current) use of insulin; Z79.82 Long term (current) use of aspirin; Z79.899 Other long term (current) drug therapy; F17.200 Nicotine dependence, unspecified, uncomplicated
CPT/HCPCS: 01844; 36819; 82962; J7120

== ENCOUNTER 2020-09-12 16:10 | Observation (INO) | payer MEDICAID, SELFPAY ==
[2020-09-12 15:42] VITALS: BMI 32.3
[2020-09-12 15:45] VITALS: PULSE 69
[2020-09-12 16:03] VITALS: BP 140/80; PULSE 75; RESP 16; TEMP 36.6; O2SAT 97
--- NOTE | 2020-09-12 16:10 | EKG12_ITS ---
Test Reason : Blood Pressure : / mmHG Vent. Rate : 079 BPM Atrial Rate : 079 BPM P-R Int : 180 ms QRS Dur : 096 ms QT Int : 418 ms P-R-T Axes : 064 014 059 degrees QTc Int : 479 ms Normal sinus rhythm Normal ECG When compared with ECG of 12-SEP-2020 16:34, MANUAL COMPARISON REQUIRED, DATA IS UNCONFIRMED Confirmed by JILLIAN MARSHALL, NOE ([id number]), primer expeditor and drier MILI BERNARD ([id number]) on 09/16/2020 9:10:10 AM Referred By: GLEN Confirmed By:NOE WALSH MD
--- NOTE | 2020-09-12 16:16 | HP.PCM.HOS_ITS ---
HPI - General General Date of Admission: 09/12/20 Date of Service: 09/12/20 Chief Complaint: chest pain HPI Narrative PRASHANTH INGRAM, is a 65 M who presents presents with chest pain while on hemodialysis. Hemodialysis was discontinued prematurely due to the chest pain and patient was sent to [facility]. Patient had a chest x-ray that showed pulmonary vascular congestion. Patient underwent a CTA of his head and neck that did not show any acute process. Patient was normotensive there and due to the cardiac concerns they requested transfer to [facility] for further evaluation. Much of the history is obtained through the emergency room physician as well as some the documentation that was provided. Patient is confused and not a reliable historian. 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 Benign prostatic hyperplasia without lower urinary tract symptoms Chronic kidney disease, stage 5 Chronic obstructive pulmonary disease, unspecified Chronic systolic (congestive) heart failure Emphysema, unspecified End-stage renal disease on hemodialysis Essential (primary) hypertension GERD (gastroesophageal reflux disease) GI bleed Hyperlipidemia Major depressive disorder, recurrent, moderate Malignant hypertension Morbid (severe) obesity due to excess calories Muscle weakness (generalized) Neuralgia and neuritis, unspecified Nicotine dependence Non-ischemic cardiomyopathy Non-STEMI (non-ST elevated myocardial infarction) Other cervical disc degeneration, unspecified cervical region Paraphilia, unspecified Peripheral vascular occlusive disease Pneumonia, unspecified organism Syncope and collapse TIA (transient ischemic attack) Type 2 diabetes mellitus with other diabetic kidney complication Unspecified cataract Home Medications acetaminophen 500 mg tablet 500 mg PO Q6H PRN 10/30/19 [History Last Taken Unknown] atorvastatin 40 mg tablet 40 mg PO QHS 10/30/19 [History Last Taken Unknown] carbamazepine 200 mg tablet 200 mg PO BID 10/30/19 [History Last Taken Unknown] carvedilol 25 mg tablet 25 mg PO BID 10/30/19 [History Last Taken Unknown] furosemide 40 mg tablet 40 mg PO DAILY 10/30/19 [History Last Taken Unknown] gabapentin 300 mg capsule 300 mg PO BID 10/30/19 [History Last Taken Unknown] isosorbide mononitrate 30 mg tablet,extended release 24 hr 90 mg PO DAILY tab 10/30/19 [History Last Taken Unknown] ondansetron HCl 4 mg tablet 4 mg PO Q6H PRN 10/30/19 [History Last Taken Unknown] pantoprazole 40 mg tablet,delayed release 40 mg PO DAILY 10/30/19 [History Last Taken Unknown] terazosin 5 mg capsule 5 mg PO QHS 10/30/19 [History Last Taken Unknown] insulin detemir U-100 45 unit SQ BID 11/26/19 [History Last Taken Unknown] aspirin 81 mg PO DAILY 01/14/20 [History Last Taken Unknown] insulin lispro 0 unit SQ TID 01/14/20 [History Last Taken Unknown] insulin lispro 10 unit SQ 1130 01/14/20 [History Last Taken Unknown] insulin lispro 14 unit SQ 0700 01/14/20 [History Last Taken Unknown] insulin lispro 16 unit SQ 1630 01/14/20 [History Last Taken Unknown] magnesium hydroxide 30 ml PO DAILY PRN PRN 01/14/20 [History Last Taken Unknown] amlodipine 10 mg tablet 10 mg PO DAILY 03/04/20 [History Last Taken Unknown] ipratropium 20 mcg-albuterol 100 mcg/actuation mist for inhalation 1 puff INHALATION Q6H 03/04/20 [History Last Taken Unknown] Allergy/AdvReac Type Severity Reaction Status Date / Time NSAIDS (Non-Steroidal Allergy Unknown Unknown Verified 03/04/20 13:15 Anti-Inflamma JONNY Inhibitors Allergy Unknown Verified 03/04/20 13:15 tuberculin, purified protein Allergy PT UNSURE Verified 09/12/20 16:05 deriva OF REACTION Family History Mother Diabetes Surgical History H/O coronary artery bypass surgery (03/07/09) History of arteriovenostomy for renal dialysis (~12/2019) History of coronary artery stent placement (09/27/08) Hx of appendectomy Social History Smoking Status: Former smoker second hand exposure: Yes alcohol intake: never substance use type: does not use caffeine: No what type of physical activity do you participate in: none seatbelt use: always ROS Review of Systems ROS Unobtainable: due to encephalopathy and other Details: Limited due to confusion as well as anxiety. Does complain of diffuse pain throughout. Disclaimed of abdominal bloating. Vital Signs Vital Signs Vital Signs: 09/12/20 16:03 Temperature 36.6 C Temperature Source Temporal Pulse Rate 75 Respiratory Rate 16 Blood Pressure 140/80 H Blood Pressure Mean 100 Pulse Ox 97 Oxygen Delivery Method Room Air Weight Weight: 108 kg Body Mass Index (BMI) 32.3 Physical Exam Narrative Reproducible anterior chest wall tenderness. Const alert and no apparent distress General Appearance: cooperative HEENT normocephalic and moist oral mucous membranes Eyes Eyes Narrative: No scleral icterus Neck no lymphadenopathy Resp normal respiratory effort and clear to auscultation bilaterally Cardio regular rate, regular rhythm, S1 normal heart sound and S2 normal heart sound GI normal to inspection, nondistended, normoactive bowel sounds GI Narrative: Distended. Extremity normal to inspection Extremity Narrative: palpable fistula in RUE. no LE edema Skin no rashes or lesions noted and no wounds Neuro Neuro Narrative: Confused. Moves all extremities spontaneously. Sensorium / Orientation: alert Psych Mood & Affect: anxious Results Lab / Micro Data Lab results narrative: CBC: White count 7.5, hemoglobin 11.7 and platelets 113 BMP: Sodium 141, potassium 4, glucose 152, creatinine 4.86 and calcium 8.8 Lactate 1.1 Ammonia 12 Urinalysis showed 500 leuk, 6-10 white blood cells, 0-5 red blood cells +1 bacteria. Assessment & Plan Assessment/Plan (1) Chest pain: QUALIFIERS: Chest pain type: unspecified Qualified Code(s): R07.9 - Chest pain, unspecified PLAN: 1. Chest pain * Atypical * Doubt cardiac but we will cycle troponins and check a nuclear stress test on the 2. End-stage renal disease * Dialysis every Tuesday. Dialysis today was cut short. * Discussed with Dr. Zhang, who will see the patient on consultation 3. Abnormal urinalysis * The outside hospital was concerning for a UTI but I do not see any evidence of UTI based on this urinalysis and I do not feel that antibiotics are necessary. 4. Reported pulmonary vascular congestion * Patient appears to be clinically compensated at this time on room air * No x-ray was provided 5. Abdominal distention * Unclear if this is new but patient is reporting abdominal bloating * Check an abdominal x-ray * Nothing at this time suggesting a surgical emergency 6. Diabetes mellitus type 2 * Continue with basal and prandial insulin but also add sliding scale insulin 7. Confusion * Patient underwent a head CTA at the outside hospital, results of which are now provided but was reported to me by the ED physician that was normal * Patient has no focal deficits to suggest stroke and no additional stroke work- up will be performed unless his condition changes that would warrant that. * Reportedly, patient was noted to be at baseline 8. VTE prophylaxis: Not indicated as patient is observation status 9. Health maintenance: Patient has been vaccinated against COVID-19. We will request imaging from [facility]. Charges/Coding Visit Charges OBSV E&M: 08421 Initial observation care L3
--- NOTE | 2020-09-12 16:55 | RAD_ITS ---
STUDY: X-RAY - ABDOMEN/PELVIS REASON FOR EXAM: Male, 65 years old. abdominal pain TECHNIQUE: Abdominal pain COMPARISON: None. FINDINGS: Normal visualized lung bases. There is an nonobstructive bowel gas pattern. There is no demonstrated free abdominal air. The visualized liver, spleen and kidneys are grossly normal in size and morphology. Normal soft tissue structures. Normal visualized osseous structures. There are degenerative changes in the spine, age-appropriate. RAD/Abdomen Single View (Portable) IMPRESSION: Normal x-ray examination of the abdomen and pelvis. No intestinal obstruction. Electronically Signed: Zheng Clarke MD at 17:57 EDT Tel , Service support ,
[2020-09-12] MEDS: oxyCODONE 5 MG Tablet PO ×2 (17:31→22:16)
[2020-09-12] MEDS: Insulin Lispro 100 UNIT/ML INSULN.PEN 16 UNIT SC (17:36)
[2020-09-12 17:40] LABS: Bedside Glucose 128 mg/dL (70-110)
[2020-09-12] MEDS: Ipratropium/Albuterol Sulfate 3 ML AMPUL.NEB INHALATION (19:02)
[2020-09-12 19:04] VITALS: PULSE 75; RESP 19; O2SAT 93
[2020-09-12 22:04] VITALS: BP 132/68; PULSE 75; RESP 18; TEMP 37; O2SAT 93
[2020-09-12] MEDS: Carvedilol 25 MG Tablet PO (22:11)
[2020-09-12] MEDS: Doxazosin 4 MG Tablet PO (22:11)
[2020-09-12] MEDS: carBAMazepine 200 MG Tablet PO (22:11)
[2020-09-12] MEDS: Atorvastatin Calcium 40 MG Tablet PO (22:12)
[2020-09-12 22:20] LABS: Bedside Glucose 186 mg/dL (70-110)
[2020-09-13] VITALS (9 sets, daily range): BP systolic 110–139; BP diastolic 60–78; PULSE 69–101; RESP 18; TEMP 36.4–36.9; O2SAT 92–97
[2020-09-13] MEDS: Ipratropium/Albuterol Sulfate 3 ML AMPUL.NEB INHALATION (01:00)
--- NOTE | 2020-09-13 05:55 | EKG12_ITS ---
Test Reason : Blood Pressure : / mmHG Vent. Rate : 072 BPM Atrial Rate : 072 BPM P-R Int : 172 ms QRS Dur : 094 ms QT Int : 444 ms P-R-T Axes : 059 004 070 degrees QTc Int : 486 ms Normal sinus rhythm Nonspecific ST and T wave abnormality Prolonged QT Abnormal ECG No previous ECGs available Confirmed by JILLIAN MARSHALL, NOE ([id number]), news video editor MILI BERNARD ([id number]) on 09/16/2020 9:11:00 AM Referred By: GLEN Confirmed By:NOE WALSH MD
[2020-09-13] MEDS: Aspirin E.C. 81 MG Tablet PO (06:21)
[2020-09-13 06:25] LABS: Bedside Glucose 121 mg/dL (70-110)
[2020-09-13 07:09] LABS: Anion Gap 7 (5-15); BUN 34 mg/dL (7-18); BUN/Creat Ratio 5.3 RATIO (10-20); Calcium,Total 8.2 mg/dL (8.5-10.1); Chloride 102 mmol/L (98-107); Creatinine, Serum 6.41 mg/dL (0.70-1.30); EST Glomerular Filtration Rate 9 mL/min (>60); Est Glom Filt Rate - Afr Amer 11 mL/min (>60); Estimated Creatinine Clearance 12.27 ml/min; Glucose 129 mg/dL (74-106); Potassium 4.2 mmol/L (3.5-5.1); Sodium Level 138 mmol/L (136-145)
--- NOTE | 2020-09-13 08:22 | CT_ITS ---
STUDY: CT ABDOMEN AND PELVIS WITHOUT CONTRAST REASON FOR EXAM: Male, 65 years old. Abdominal pain, right flank pain, pelvic pain RADIATION DOSAGE (If Supplied By Facility): CTDIvol = ( 19.74 ) mGy, DLP = ( 1011.07 ) mGycm TECHNIQUE: Transaxial images were obtained from the dome of the diaphragm to the symphysis pubis without oral contrast, and without intravenous contrast. Sagittal and coronal images were reconstructed. Individualized dose optimization techniques were used for this CT. COMPARISON: None. FINDINGS: The visualized lung bases are unremarkable. The visualized portions of the heart are within normal limits. Normal liver. Normal gallbladder and extrahepatic biliary system. Normal spleen. Normal pancreas. Normal bilateral adrenal glands. Normal right kidney. Normal left kidney. There is a small hiatal hernia. Diverticulum of the second portion the duodenum. Normal colon. The appendix is visualized and appears normal. There is diffuse atherosclerotic calcification of the abdominal aorta, without a demonstrated aneurysm. Normal inferior vena cava. Normal retroperitoneum. Normal urinary bladder. There is a right-sided inguinal hernia containing adipose tissue. There are diffuse degenerative changes of the visualized lumbar spine. CT/Abdomen/Pelvis without Cont IMPRESSION: No renal or ureteral stone. Electronically Signed: Nixon Broderick MD at 11:01 EDT Tel , Service support ,
--- NOTE | 2020-09-13 08:26 | PCM.PN.HOSP ---
Subjective Subjective Chief complaint: Follow-up after admission for chest pain, encephalopathy and abdominal pain. Patient seen and examined. This morning, he is awake, oriented x2, disoriented to place. He complained of back pain/right flank pain. He stated that he does have chronic back pain but it is getting worse. When I examined him, he complained of pain upon abdominal palpation. He has no more chest pain. His vital signs are stable. Objective Data Objective Data Vital Signs: Vital Signs Temp Pulse Resp BP Pulse Ox 98.4 F 69 18 135/72 H 92 09/13/20 06:15 09/13/20 07:48 09/13/20 06:15 09/13/20 06:15 09/13/20 07:41 Oxygen Delivery Method Room Air Weight: 238 lb 1.588 oz Body Mass Index (BMI) 32.3 Intake & Output: Intake and Output for Last 24 Hours 09/11/20 09/12/20 09/13/20 23:59 23:59 23:59 Intake Total 120 / 120 Output Total 100 / 200 100 / 100 Balance -100 / -80 20 / 20 Lab / Micro Data Result Diagrams: 09/13/20 05:11 09/13/20 05:11 Labs: Laboratory Results - last 24 hr 09/12/20 09/12/20 09/12/20 16:40 16:58 17:30 Sodium Potassium Chloride Carbon Dioxide Anion Gap BUN Creatinine Estim Creat Clear Calc Est GFR (MDRD) Af Amer Est GFR (MDRD) Non-Af BUN/Creatinine Ratio Glucose Calcium Magnesium Troponin I < 0.015 < 0.015 POC Glucose 128 H 09/12/20 09/12/20 09/13/20 22:08 22:39 05:11 Sodium 138 Potassium 4.2 Chloride 102 Carbon Dioxide 29.0 Anion Gap 7 BUN 34 H Creatinine 6.41 H Estim Creat Clear Calc 12.27 Est GFR (MDRD) Af Amer 11 L Est GFR (MDRD) Non-Af 9 L BUN/Creatinine Ratio 5.3 L Glucose 129 H Calcium 8.2 L Magnesium Troponin I < 0.015 POC Glucose 186 H 09/13/20 09/13/20 05:11 06:20 Sodium Potassium Chloride Carbon Dioxide Anion Gap BUN Creatinine Estim Creat Clear Calc Est GFR (MDRD) Af Amer Est GFR (MDRD) Non-Af BUN/Creatinine Ratio Glucose Calcium Magnesium 2.0 Troponin I POC Glucose 121 H Radiography Diagnostic Testing: Radiology Impression KUB X-Ray 09/12/20 16:55 IMPRESSION: Normal x-ray examination of the abdomen and pelvis. No intestinal obstruction. Electronically Signed: Zheng Clarke MD at 17:57 EDT Tel , Service support , Physical Exam Const alert and no limitations Constitutional Narrative: He is in moderate pain. General Appearance: cooperative Orientation / Consciousness: oriented to person and oriented to time HEENT normocephalic, head/scalp atraumatic, external ears normal and external nose normal Head and Scalp: normal to inspection Eyes PERRL, EOMs intact bilaterally, conjunctivae normal and no scleral icterus General Eye: normal appearance of both eyes Neck no lymphadenopathy, supple, no meningeal signs, no JVD and no carotid bruits Lymph Lymphatic: no lymphadenopathy noted Resp normal respiratory effort, normal air movement and clear to auscultation bilaterally Resp Narrative: Diminished breath sounds bilateral, otherwise clear. Auscultation: Negative for crackles, rales, rhonchi or wheezes Cardio regular rate, regular rhythm, S1 normal heart sound, S2 normal heart sound, no murmurs and no JVD GI soft to palpation; Negative for hepatosplenomegaly GI Narrative: Distended, tender. Auscultation: normoactive bowel sounds Palpation: tender Extremity normal to inspection, full ROM and no clubbing, cyanosis or edema Skin no rashes or lesions noted, no wounds and no petechiae Neuro oriented x3, CN's II-XII intact bilaterally and moves all extremities Sensorium / Orientation: alert Speech: speech normal Motor Exam: strength 5/5 throughout Psych mental status grossly normal, affect normal and denies hallucinations
[2020-09-13 08:39] LABS: Absolute Lymphocyte Count 1.78 X10^3/uL (0.83-4.51); Absolute Neutrophil Count 4.1 X10^3/uL (2.0-7.7); Basophil# 0.03 X10^3/uL; Basophil% 0.4 % (0-1); Eosinophil# 0.23 X10^3/uL; Eosinophils% 3.3 % (0-5); Hematocrit 31.3 % (40-54); Hemoglobin 10.1 g/dL (13.0-16.5); Lymphocyte # 1.78 X10^3/ul (0.83-4.51); Lymphocyte % 25.6 % (19-41); Mean Corp Hgb Conc 32.3 g/dL (32-36); Mean Corpuscular Hgb 30.1 pg (27.0-32.0); Mean Corpuscular Volume 93.2 fL (80-94); Mean Platelet Vol. 9.2 fl (6.2-12.0); Monocyte# 0.73 X10^3/uL; Monocyte% 10.5 % (0-10); NRBC Flagged by Analyzer 0 % (0-5); Neutrophil # 4.13 X10^3/uL (2.7-7.7); Neutrophil % 59.5 % (47-70); Platelet Count 103 K/mm3 (150-450); RBC Distribution Width CV 13.8 % (11.6-14.6); RBC Distribution Width SD 46.6 fl (35.1-43.9); Red Blood Count 3.36 M/mm3 (4.6-6.2)
[2020-09-13 08:45] LABS: AST(SGOT) 17 U/L (15-37); Alanine Aminotransfer ALT/SGPT 14 U/L (16-61); Albumin, Serum 2.8 g/dL (3.2-5.0); Alkaline Phosphatase 78 U/L (45-117); Bilirubin, Direct 0.11 mg/dL (0.00-0.30); Globulin 3.9 g/dL (2.2-4.2); Lipase 107 U/L (73-393); Protein, Total 6.7 g/dL (6.4-8.2)
[2020-09-13] MEDS: Isosorbide Mononitrate 30 MG Tablet 90 MG PO (10:19)
[2020-09-13] MEDS: Carvedilol 25 MG Tablet PO (10:19)
[2020-09-13] MEDS: Pantoprazole Sodium 40 MG Tablet PO (10:20)
[2020-09-13] MEDS: Furosemide 40 MG Tablet PO (10:20)
[2020-09-13] MEDS: carBAMazepine 200 MG Tablet PO (10:20)
[2020-09-13] MEDS: oxyCODONE 5 MG Tablet PO ×2 (10:26→14:54)
--- NOTE | 2020-09-13 11:12 | STRESSREP_ITS ---
Stress Test Report Lexiscan myocardial perfusion stress test. Indication; 65-year-old male presented with symptoms of chest pain while on hemodialysis. Hemodialysis discontinued prematurely due to chest pain and patient was sent over to the hospital here at the [facility] for evaluation. This patient has multiple medical comorbidities, morbid obesity with chronic obstructive pulmonary disease and chronic renal insufficiency has been on hemodialysis and history of GI bleed and hyperlipidemia. Stress protocol: Resting EKG demonstrates. Normal sinus rhythm. 0.4 mg of regadenoson was infused per usual protocol followed by rapid intravenous saline flush injection continuous EKG monitoring was performed. The maximum heart rate attained was 97 bpm which was 63% of maximum predicted heart . Stress EKG showed[, no significant change from the resting EKG, with maximum heart rate of 97 bpm. Arrhythmia: No arrhythmia demonstrated Symptoms: Patient had no symptoms of chest pain Blood pressure at rest: 142/68 mmHg blood pressure at the end of stress: 142/68 mmHg Myocardial perfusion protocol. 13.8 mCi ]of Technetium 99m Sestamibi was injected at rest. [ 0.4 mg ]of Regadenoson was infused per usual protocol peak infusion 44.3 mCi ]of Technetium 99m sestamibi was injected. Stress images were obtained stress and rest images were reconstructed and compared in the short axis vertical and horizontal long axis. Gated images were also obtained Perfusion SPECT analysis: Review of the images demonstrate normal uptake of sestamibi at rest, post stress images demonstrate similar uptake of sestamibi to the resting images, homogeneous tracer uptake With no evidence of reversible myocardial ischemia. Gated SPECT analysis: The gated ejection fraction calculated 59%, normal left ventricular wall motion. Conclusion: Negative Lexiscan sestamibi myocardial perfusion study for reversible myocardial ischemia Normal ventricular wall motion Allison Connor MD,FACC,[facility] [place], [place]
--- NOTE | 2020-09-13 12:51 | TREXTCAR_ITS ---
Diet 09/13/20 11:06 Diet: Cardiac: Calorie-Controlled Is pt able to select menu?: No Diet Comments: renal diet How many daily calories?: 1800 calorie Suggestions for Active Care Change Position every (hours): 3 Hours to sit in a chair: 2 Times a day to sit in chair: 3 Therapies Weight Bearing: Weight bearing as tolerated Physical Therapy: Eval and Treat Occupational Therapy: Eval and Treat Problem/Diagnosis (1) Chest pain: Status: Acute Allergies/Procedures Done in Hospital Allergies NSAIDS (Non-Steroidal Anti-Inflamma Allergy (Unknown, Verified 03/04/20 13:15) Unknown JONNY Inhibitors Allergy (Verified 03/04/20 13:15) Unknown tuberculin, purified protein deriva Allergy (Verified 09/12/20 16:05) PT UNSURE OF REACTION Procedures: EKG and Stress Test Type of Care/Length of Stay Estimated LOS: Convalescent Care Less Than 30 days Type of Care Needed: Skilled Rehab Potential: Fair Prognosis: Fair Additional Orders/Day of Discharge H&P will serve as current which was dated: 09/12/20 Day of Discharge: 09/13/20 Discharge Plan Admission Admit Date/Time: 09/13/20 08:30 Primary Reason for Your Visit: Chest pain Attending Provider: Oscar Lagunas Consulting Providers: Ron Zhang Instructions Patient Instructions: ED Chest Pain, Noncardiac Discharge Orders/Prescriptions Prescriptions: Continued acetaminophen [Tylenol Extra Strength] 500 mg tablet 500 mg PO Q6H PRN (Reason: Pain Or Fever) RF: 0 ondansetron HCl [Zofran] 4 mg tablet 4 mg PO Q6H PRN (Reason: Nausea) RF: 0 atorvastatin 40 mg tablet 40 mg PO QHS RF: 0 carbamazepine 200 mg tablet 200 mg PO BID RF: 0 carvedilol 25 mg tablet 25 mg PO BID RF: 0 furosemide [Lasix] 40 mg tablet 40 mg PO DAILY RF: 0 gabapentin 300 mg capsule 300 mg PO BID RF: 0 isosorbide mononitrate 30 mg tablet extended release 24 hr 30 mg PO DAILY RF: 0 pantoprazole [Protonix] 40 mg tablet,delayed release (DR/EC) 40 mg PO DAILY RF: 0 terazosin 5 mg capsule 5 mg PO QHS RF: 0 Combivent Respimat 20-100 mcg/actuation mist 1 puff INHALATION Q6H RF: 0 amlodipine 10 mg tablet 10 mg PO DAILY RF: 0 insulin detemir U-100 100 UNIT/ML solution 25 unit SQ BID RF: 0 aspirin 81 MG tablet,delayed release (DR/EC) 81 mg PO DAILY RF: 0 magnesium hydroxide 30 ML suspension 30 ml PO DAILY PRN PRN (Reason: Constipation) RF: 0 insulin lispro 100 UNIT/ML cartridge 10 unit SQ 1130 RF: 0 insulin lispro 100 UNIT/ML cartridge 14 unit SQ 0600 RF: 0 insulin lispro 100 UNIT/ML cartridge 20 unit SQ 1630 RF: 0 hydralazine 10 mg tablet 10 mg PO BID RF: 0 sennosides-docusate sodium [Senna Plus] 8.6-50 mg Tablet 1 tab-cap PO QHS RF: 0 prednisolone acetate 1 % drops,suspension 1 drp LEFT EYE BID RF: 0 calcium acetate(phosphat bind) 667 mg Capsule 1,334 mg PO TID RF: 0 Referrals / Follow Up: Ron Zhang MD [STAFF PHYSICIAN] - Within 2 Weeks Disposition Disposition (needs filled in before D/C Order can be placed): Custodial Facility
[2020-09-13] MEDS: Insulin Lispro 100 UNIT/ML INSULN.PEN SC (13:07)
[2020-09-13] MEDS: Insulin Lispro 100 UNIT/ML INSULN.PEN 10 UNIT SC (13:08)
[2020-09-13] MEDS: Acetaminophen 325 MG Tablet 650 MG PO (13:13)
--- NOTE | 2020-09-13 13:18 | PCM.DC.SUM ---
Providers Date of Admission: 09/13/20 Consultations 09/12/20 16:15 Consult: Nephrology Routine Consulting Provider: Ron Zhang Reason for Consult: dialysis EMERGENT Consult: No MD Notified: Yes Date Notified: 09/12/20 Time Notified: 16:15 Method of Notification: Verbal Reason For Visit: ALTERED MENTAL STATUS/PULMONARY EDEMA/CHEST PAIN Diagnosis Discharge Diagnosis (1) Chest pain: Status: Acute Code(s): R07.9 - Chest pain, unspecified Qualifiers: Chest pain type: unspecified Qualified Code(s): R07.9 - Chest pain, unspecified (2) Abdominal pain: Status: Acute Code(s): R10.9 - Unspecified abdominal pain Medications at Discharge Home Medications acetaminophen 500 mg tablet 500 mg PO Q6H PRN 10/30/19 atorvastatin 40 mg tablet 40 mg PO QHS 10/30/19 carbamazepine 200 mg tablet 200 mg PO BID 10/30/19 carvedilol 25 mg tablet 25 mg PO BID 10/30/19 furosemide 40 mg tablet 40 mg PO DAILY 10/30/19 gabapentin 300 mg capsule 300 mg PO BID 10/30/19 isosorbide mononitrate 30 mg tablet,extended release 24 hr 30 mg PO DAILY tab 10/30/19 ondansetron HCl 4 mg tablet 4 mg PO Q6H PRN 10/30/19 pantoprazole 40 mg tablet,delayed release 40 mg PO DAILY 10/30/19 terazosin 5 mg capsule 5 mg PO QHS 10/30/19 insulin detemir U-100 25 unit SQ BID 11/26/19 aspirin 81 mg PO DAILY 01/14/20 insulin lispro 10 unit SQ 1130 01/14/20 insulin lispro 14 unit SQ 0600 01/14/20 insulin lispro 20 unit SQ 1630 01/14/20 magnesium hydroxide 30 ml PO DAILY PRN PRN 01/14/20 amlodipine 10 mg tablet 10 mg PO DAILY 03/04/20 ipratropium 20 mcg-albuterol 100 mcg/actuation mist for inhalation 1 puff INHALATION Q6H 03/04/20 calcium acetate(phosphat bind) 1,334 mg PO TID 09/12/20 hydralazine 10 mg PO BID 09/12/20 prednisolone acetate 1 drp LEFT EYE BID 09/12/20 sennosides-docusate sodium [Senna Plus] 1 tab-cap PO QHS 09/12/20 Hospital Course Operations None Procedures EKG and Nuclear stress test Summary of Care Provided Minutes Spent on Discharge: 26 Hospital Course: This is a 65 years old male patient was admitted directly from outside facility for chest pain and reported confusion. Regarding the chest pain, EKG was unremarkable. Troponin was negative x3. Chest x-ray that was done at the outside facility revealed mild cardiomegaly, questionable pulmonary vascular congestion. He underwent nuclear stress test that showed no evidence of stress-induced myocardial ischemia and ejection fraction was preserved. Reportedly, patient had episode of confusion at the other facility. CT scan brain done and showed no acute findings. Today, patient was alert and oriented x3. On day of discharge, patient complained of right flank pain, back pain and abdominal pain upon deep palpation. LFT was unremarkable. Lipase was normal. CT scan abdomen and pelvis without contrast done and showed no evidence of kidney stones, no acute pathology seen. Afterwards, patient felt better and he asked to be discharged back to the senior care. His vital signs were stable. Patient discharged back to senior care in a stable medical condition, continued on his previous home medications without any changes, recommended follow-up with PCP in 1 week and follow-up with nephrology as scheduled. Physical Exam Const alert, oriented x3, no apparent distress and no limitations General Appearance: cooperative HEENT normocephalic, head/scalp atraumatic and external ears normal Eyes PERRL, EOMs intact bilaterally, conjunctivae normal and no scleral icterus Neck no lymphadenopathy, supple, no meningeal signs, no JVD and no carotid bruits Lymph Lymphatic: no lymphadenopathy noted Resp normal respiratory effort, normal air movement and clear to auscultation bilaterally Auscultation: Negative for crackles, rales, rhonchi or wheezes Cardio regular rate, regular rhythm, S1 normal heart sound, S2 normal heart sound, no murmurs and no JVD GI normal to inspection, nondistended, normoactive bowel sounds, soft to palpation, non-tender and non-distended; Negative for hepatosplenomegaly Extremity normal to inspection, full ROM and no clubbing, cyanosis or edema Skin no rashes or lesions noted, no wounds and no petechiae Neuro oriented x3, CN's II-XII intact bilaterally and moves all extremities Sensorium / Orientation: alert Speech: speech normal Motor Exam: strength 5/5 throughout Psych mental status grossly normal, affect normal and denies hallucinations Weight / BMI Weight Weight: 238 lb 1.588 oz Body Mass Index (BMI) 32.3 ABG / Lab / Microbiology Data Result Diagrams: 09/13/20 05:11 09/13/20 05:11 Laboratory: Laboratory Results - last 24 hr 09/12/20 09/12/20 09/12/20 16:40 16:58 17:30 WBC RBC Hgb Hct MCV MCH MCHC RDW Std Deviation RDW Coeff of April Plt Count MPV Immature Gran % (Auto) Neut % (Auto) Lymph % (Auto) Nash % (Auto) Eos % (Auto) Baso % (Auto) Absolute Neuts (auto) Absolute Lymphs (auto) Nucleated RBC % Sodium Potassium Chloride Carbon Dioxide Anion Gap BUN Creatinine Estim Creat Clear Calc Est GFR (MDRD) Af Amer Est GFR (MDRD) Non-Af BUN/Creatinine Ratio Glucose Calcium Magnesium Total Bilirubin Direct Bilirubin AST ALT Alkaline Phosphatase Troponin I < 0.015 < 0.015 Total Protein Albumin Globulin Lipase POC Glucose 128 H 09/12/20 09/12/20 09/13/20 22:08 22:39 05:11 WBC RBC Hgb Hct MCV MCH MCHC RDW Std Deviation RDW Coeff of April Plt Count MPV Immature Gran % (Auto) Neut % (Auto) Lymph % (Auto) Nash % (Auto) Eos % (Auto) Baso % (Auto) Absolute Neuts (auto) Absolute Lymphs (auto) Nucleated RBC % Sodium 138 Potassium 4.2 Chloride 102 Carbon Dioxide 29.0 Anion Gap 7 BUN 34 H Creatinine 6.41 H Estim Creat Clear Calc 12.27 Est GFR (MDRD) Af Amer 11 L Est GFR (MDRD) Non-Af 9 L BUN/Creatinine Ratio 5.3 L Glucose 129 H Calcium 8.2 L Magnesium Total Bilirubin Direct Bilirubin AST ALT Alkaline Phosphatase Troponin I < 0.015 Total Protein Albumin Globulin Lipase POC Glucose 186 H 09/13/20 09/13/20 09/13/20 05:11 05:11 05:11 WBC 7.0 RBC 3.36 L Hgb 10.1 L Hct 31.3 L MCV 93.2 MCH 30.1 MCHC 32.3 RDW Std Deviation 46.6 H RDW Coeff of April 13.8 Plt Count 103 L MPV 9.2 Immature Gran % (Auto) 0.700 Neut % (Auto) 59.5 Lymph % (Auto) 25.6 Nash % (Auto) 10.5 H Eos % (Auto) 3.3 Baso % (Auto) 0.4 Absolute Neuts (auto) 4.1 Absolute Lymphs (auto) 1.78 Nucleated RBC % 0 Sodium Potassium Chloride Carbon Dioxide Anion Gap BUN Creatinine Estim Creat Clear Calc Est GFR (MDRD) Af Amer Est GFR (MDRD) Non-Af BUN/Creatinine Ratio Glucose Calcium Magnesium 2.0 Total Bilirubin 0.30 Direct Bilirubin 0.11 AST 17 ALT 14 L Alkaline Phosphatase 78 Troponin I Total Protein 6.7 Albumin 2.8 L Globulin 3.9 Lipase 107 POC Glucose 09/13/20 06:20 WBC RBC Hgb Hct MCV MCH MCHC RDW Std Deviation RDW Coeff of April Plt Count MPV Immature Gran % (Auto) Neut % (Auto) Lymph % (Auto) Nash % (Auto) Eos % (Auto) Baso % (Auto) Absolute Neuts (auto) Absolute Lymphs (auto) Nucleated RBC % Sodium Potassium Chloride Carbon Dioxide Anion Gap BUN Creatinine Estim Creat Clear Calc Est GFR (MDRD) Af Amer Est GFR (MDRD) Non-Af BUN/Creatinine Ratio Glucose Calcium Magnesium Total Bilirubin Direct Bilirubin AST ALT Alkaline Phosphatase Troponin I Total Protein Albumin Globulin Lipase POC Glucose 121 H Radiography Diagnostic Testing: Radiology Impression KUB X-Ray 09/12/20 16:55 IMPRESSION: Normal x-ray examination of the abdomen and pelvis. No intestinal obstruction. Electronically Signed: Zheng Clarke MD at 17:57 EDT Tel , Service support , Abdomen/Pelvis CT 09/13/20 08:22 IMPRESSION: No renal or ureteral stone. Electronically Signed: Nixon Broderick MD at 11:01 EDT Tel , Service support , Meaningful Use Info Meaningful Use Diagnoses (Choose all that apply): None applicable Discharge Plan Admission Admit Date/Time: 09/13/20 08:30 Primary Reason for Your Visit: Chest pain Attending Provider: Oscar Lagunas Consulting Providers: Ron Zhang Instructions Patient Instructions: ED Chest Pain, Noncardiac Additional Instructions / Restrictions: Follow up with PCP in x1 week Discharge Orders/Prescriptions Prescriptions: Continued acetaminophen [Tylenol Extra Strength] 500 mg tablet 500 mg PO Q6H PRN (Reason: Pain Or Fever) RF: 0 ondansetron HCl [Zofran] 4 mg tablet 4 mg PO Q6H PRN (Reason: Nausea) RF: 0 atorvastatin 40 mg tablet 40 mg PO QHS RF: 0 carbamazepine 200 mg tablet 200 mg PO BID RF: 0 carvedilol 25 mg tablet 25 mg PO BID RF: 0 furosemide [Lasix] 40 mg tablet 40 mg PO DAILY RF: 0 gabapentin 300 mg capsule 300 mg PO BID RF: 0 isosorbide mononitrate 30 mg tablet extended release 24 hr 30 mg PO DAILY RF: 0 pantoprazole [Protonix] 40 mg tablet,delayed release (DR/EC) 40 mg PO DAILY RF: 0 terazosin 5 mg capsule 5 mg PO QHS RF: 0 Combivent Respimat 20-100 mcg/actuation mist 1 puff INHALATION Q6H RF: 0 amlodipine 10 mg tablet 10 mg PO DAILY RF: 0 insulin detemir U-100 100 UNIT/ML solution 25 unit SQ BID RF: 0 aspirin 81 MG tablet,delayed release (DR/EC) 81 mg PO DAILY RF: 0 magnesium hydroxide 30 ML suspension 30 ml PO DAILY PRN PRN (Reason: Constipation) RF: 0 insulin lispro 100 UNIT/ML cartridge 10 unit SQ 1130 RF: 0 insulin lispro 100 UNIT/ML cartridge 14 unit SQ 0600 RF: 0 insulin lispro 100 UNIT/ML cartridge 20 unit SQ 1630 RF: 0 hydralazine 10 mg tablet 10 mg PO BID RF: 0 sennosides-docusate sodium [Senna Plus] 8.6-50 mg Tablet 1 tab-cap PO QHS RF: 0 prednisolone acetate 1 % drops,suspension 1 drp LEFT EYE BID RF: 0 calcium acetate(phosphat bind) 667 mg Capsule 1,334 mg PO TID RF: 0 Referrals / Follow Up: Ron Zhang MD [STAFF PHYSICIAN] - Within 2 Weeks Disposition Disposition (needs filled in before D/C Order can be placed): [facility] Charges/Coding Visit Charges OBSV E&M: 20321 Observation care discharge
[2020-09-13 13:20] LABS: Bedside Glucose 167 mg/dL (70-110)
--- NOTE | 2020-09-13 14:51 | NURSING ---
LATE ENTRY - 1300 - BP HELD THIS AM DUE TO POSSIBLE DIALYSIS TODAY. BP NOW 110/60 & NOT HAVING DIALYSIS TODAY. DR COREAAH TEXT REGARDING SAME. ORDER TO HOLD [facility] TODAY.
--- NOTE | 2020-09-13 14:58 | NURSING ---
REPORT CALLED TO PATRICK @ [facility]
--- NOTE | 2020-09-13 16:37 | PCM.PN.BLA ---
Progress Note received consult. Called dialysis unit. he received all except last 40 min of dialysis. labs ok. discharge today. patient was discharged before I could see him
--- NOTE | 2020-09-13 19:28 | CASEMGMT ---
SOBEIDA Note Referral Source: Instrumental Musician and MD Referral Reason: Patient will be discharged. From [facility]. SOBEIDA called Елена at [facility] and advised that patient would be discharged today and could patient return. Елена said that she would need to speak to staff and call this tech writer back. SOBEIDA received call from Елена at [facility] and patient is able to return. SOBEIDA asked Lore, Aircraft Engine Technician to call Елена and give updated time of patient's release, Lore agreed. Plan: Return to [facility] Suzanne HIGHTOWER
== END 2020-09-13 12:57 | disposition skilled nursing facility (03) ==
PROVIDERS: Hospitalist; Visit Provider Hospitalist
DX: R07.89 Other chest pain (principal); I25.10 Atherosclerotic heart disease of native coronary artery without angina pectoris; K21.9 Gastro-esophageal reflux disease without esophagitis; I50.22 Chronic systolic (congestive) heart failure; I13.2 Hypertensive heart and chronic kidney disease with heart failure and with stage 5 chronic kidney disease, or end stage renal disease; N40.0 Benign prostatic hyperplasia without lower urinary tract symptoms; E11.22 Type 2 diabetes mellitus with diabetic chronic kidney disease; J43.9 Emphysema, unspecified; E66.01 Morbid (severe) obesity due to excess calories; N18.6 End stage renal disease; E78.5 Hyperlipidemia, unspecified; E11.51 Type 2 diabetes mellitus with diabetic peripheral angiopathy without gangrene; I25.2 Old myocardial infarction; I42.8 Other cardiomyopathies; Z79.899 Other long term (current) drug therapy; Z79.4 Long term (current) use of insulin; Z95.2 Presence of prosthetic heart valve; Z79.82 Long term (current) use of aspirin; Z99.2 Dependence on renal dialysis; F17.200 Nicotine dependence, unspecified, uncomplicated
CPT/HCPCS: 36415; 74018; 74176; 78452; 80048; 80076; 82962; 83690; 83735; 84484; 85025; 93005; 93017; 94640; 99218; 99406; A9500; A4216; G0378; G0379; J2785